=== PATIENT | female | born 2005 | race Two or more races ===

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

== ENCOUNTER 2024-10-27 20:29 | Emergency (ER) | payer OTHER, SELFPAY ==
--- NOTE | ~2024-10-27 | XR_ITS ---
CLINICAL HISTORY: chest congestion 1 view chest x-ray. Comparison: CR/SR - XR CHEST 2V - 05/10/23 17:51 EDT Findings: There is a somewhat rounded opacity at the right lung base measuring up to approximately 3.6 cm. Lungs appear otherwise clear. Cardiomediastinal silhouette is within normal limits. IMPRESSION: Somewhat rounded opacity at the right lung base probably rounded pneumonia as opposed to a mass given the patient's age. Follow-up to ensure resolution is recommended. This document has been electronically signed by: Sanjiv Kinsey MD on 10/27/2024 22:07:02
[2024-10-27 20:47] VITALS: BP 100/59; PULSE 110; RESP 18; TEMP 37.4; O2SAT 98; BMI 26.4
--- NOTE | 2024-10-27 21:14 | MHC.EDTECH ---
Patient brought into triage area,labs,sars/flu/rsv obtained and sent to lab
[2024-10-27 21:21] LABS: Basophils Absolute Auto 0.1 X10*3/uL (0.0-0.2); Basophils Percent Auto 0.3 % (0-2); Hematocrit 34.4 % (37.0-47.0); Hemoglobin 11.8 g/dl (12.0-16.0); Imm Gran Abs Auto 0.32 X10*3/uL (0.00-0.03); Imm Gran Pct Auto 1.3 % (0.0-0.4); Lymphocytes Absolute Auto 1.5 X10*3/uL (1.2-4.9); Lymphocytes Percent Auto 5.9 % (20-40); MANUAL DIFF FLAG SCAN; Mean Corpuscular HGB Conc 34.3 g/dl (31.0-35.0); Mean Corpuscular Hemoglobin 29.4 pg (27.0-33.0); Mean Corpuscular Volume 85.8 fL (80.0-98.0); Mean Platelet Volume 9.5 fL (9.4-12.3); Monocytes Absolute Auto 1.9 X10*3/uL (0.1-1.2); Monocytes Percent Auto 7.7 % (2-11); Neutrophils Absolute Auto 21.4 x10*3/uL (2.0-8.3); Neutrophils Percent Auto 84.8 % (45-73); Platelet Count 265 X10*3/uL (160-400); Red Blood Count 4.01 X10*6/uL (4.20-5.50); Red Cell Distribution Width 11.7 % (11.0-16.0); SCAN SMEAR FLAG 1; White Blood Count 25.3 X10*3/uL (4.8-10.8)
[2024-10-27 21:34] LABS: Alanine Aminotransferase 18 U/L (0-31); Albumin Level 3.8 g/dL (3.5-5.0); Alkaline Phosphatase 55 U/L (39-117); Anion Gap 8 (12-20); Aspartate Amino Transferase 28 U/L (5-31); Bilirubin Total 0.9 mg/dL (0.0-1.0); Blood Urea Nitrogen 6 mg/dL (9-16); Calcium 8.6 mg/dL (8.4-10.2); Carbon Dioxide 24 mmol/L (22-29); Chloride 108 mmol/L (96-108); Creatinine Clr Calc Pharmacy 106.2; Estimated Glomerular Filt Rate > 60; Glucose Random 157 mg/dL (60-115); Potassium 3.4 mmol/L (3.3-5.1); Sodium 137 mmol/L (135-145); Total Protein 6.9 g/dL (6.5-8.0)
[2024-10-27 21:58] LABS: Influenza A PCR NEGATIVE (Negative); Influenza B PCR NEGATIVE (Negative); Resp Syncy Virus RNA Qual PCR NEGATIVE (Negative); SARS COV2 PCR INHOUSE NEGATIVE (Negative)
[2024-10-27 22:02] LABS: SLIDE REVIEW VERIFIED
[2024-10-27 23:26] VITALS: BP 106/55; PULSE 98; RESP 17; TEMP 37.2; O2SAT 99
[2024-10-28] MEDS: cefTRIAXone sodium 2 GM VIAL IVPUSH (00:01)
[2024-10-28] MEDS: 0.9 % Sodium Chloride 1,000 ML 999 ML IV ×2 (00:02→01:26)
[2024-10-28 00:28] LABS: Lactic Acid 1.3 mmol/L (0.5-2.0)
[2024-10-28 01:11] VITALS: BP 98/45; PULSE 100; RESP 17; TEMP 37.9; O2SAT 100
[2024-10-28] MEDS: Doxycycline Monohydrate 100 MG CAPSULE PO (01:30)
[2024-10-28] MEDS: Ketorolac Tromethamine 15 MG/ML VIAL IVPUSH (01:30)
[2024-10-28 02:00] VITALS: BP 96/55; PULSE 96; RESP 17; TEMP 36.9; O2SAT 96
[2024-10-28 03:04] VITALS: BP 97/43; PULSE 99; RESP 16; TEMP 36.8; O2SAT 97
--- NOTE | 2024-10-28 03:47 | ED_ITS ---
HPI - General Adult General Chief complaint: Upper Respiratory Symptoms Stated complaint: Asthma/fever today Time Seen by Provider: 10/27/24 23:27 Source: patient Limitations: no limitations History of Present Illness ED Provider: Marybel Balderas PA-C HPI narrative: 19-year-old female presents with cough and cold symptoms x2 days. Associated generalized myalgia, weakness headache, sore throat with cough. The cough is not productive. Patient had a fever 100.3 at home. Her child has been sick with RSV. Denies history of asthma or tobacco abuse. Related Data Previous Rx's ?Medication ?Instructions ?Recorded epinephrine 0.3 mg/0.3 mL 0.3 mg (0.3 mL) IM Q10M PRN 06/19/22 injection, auto-injector anaphylaxis #2 ea nitrofurantoin 100 mg PO Q12H 7 days #14 caps 08/27/23 monohydrate/macrocrystals 100 mg capsule (Macrobid) doxycycline hyclate 100 mg capsule 100 mg PO BID #14 caps 10/28/24 Allergies Allergy/AdvReac Type Severity Reaction Status Date / Time peanut Allergy Severe Anaphylaxis Verified 10/27/24 20:47 albuterol Allergy Unknown Verified 10/27/24 20:47 amoxicillin Allergy Hives Verified 10/27/24 20:47 oseltamivir [From Tamiflu] Allergy Hives Verified 10/27/24 20:47 Seasonal Allergies AdvReac Hives Verified 10/27/24 20:47 Review of Systems 2 Review of Systems: Yes all other systems are reviewed and are negative Constitutional: Constitutional: Reports fatigue, Reports fever(s) and Reports malaise Cardiovascular: Cardiovascular: Denies chest pain and Denies dyspnea Respiratory: Respiratory: Reports cough, Denies dyspnea and Denies wheezing Gastrointestinal: Gastrointestinal: Denies abdominal pain, Denies diarrhea, Denies nausea and Denies vomiting Endocrine: Endocrine: Reports fatigue Allergic/Immunologic: Allergic/Immunologic: Denies wheezing PMFSH Past Medical History Attestation statement: The following information was validated with the patient. Medical History Asthma Social History Social History Smoked in Last 30 Days: No Use of substances other than those prescribed or required for medical reasons: No Advance Directives: No Advance Directives Information Provided: No Do you have a plan to hurt others: No Plan Patient : No Physical Exam ED Vital Signs: Vital Signs - 24 hr 10/27/24 20:47 10/27/24 23:26 10/27/24 23:26 Temperature 99.3 F 98.9 F Pulse Rate 110 H 98 Respiratory Rate 18 17 Blood Pressure 100/59 L 106/55 L Pulse Oximetry 98 99 99 Oxygen Delivery Method Room Air Room Air Room Air 10/28/24 01:11 10/28/24 02:00 10/28/24 03:04 Temperature 100.3 F 98.5 F 98.3 F Pulse Rate 100 96 99 Respiratory Rate 17 17 16 Blood Pressure 98/45 L 96/55 L 97/43 L Pulse Oximetry 100 96 97 Oxygen Delivery Method Room Air Room Air Room Air 10/28/24 04:00 10/28/24 04:22 Temperature 98.3 F 98.3 F Pulse Rate 90 90 Respiratory Rate 17 17 Blood Pressure 105/64 105/64 Pulse Oximetry 97 97 Oxygen Delivery Method Room Air Room Air BMI result Body Mass Index 26.4 Const Other: Alert Orientation/consciousness: patient oriented x3 Resp Other: Nonlabored respirations lungs clear to auscultation Cardio Other: Normal peripheral perfusion Skin Other: Warm dry no rash Neuro General: patient oriented x3, no focal motor deficits and CN's II-XI intact bilaterally Psych Other: Cooperative Course Reevaluation(s) Reevaluation #1: Sepsis considered prior to me assessing the patient, with the screening labs, blood cultures and lactic acid were obtained. She was given a L of IV fluid, Toradol and ceftriaxone. To note, she does not require the weight based IV fluid therapy given she is hemodynamically stable/normotensive. Time: 23:31 Medications Administered Discontinued Medications Generic Name Dose Route Start Last Admin Trade Name Freq PRN Reason Stop Dose Admin Ceftriaxone Sodium 2 gm 10/27/24 23:31 10/28/24 00:01 Ceftriaxone Sodium 2 Gm Vial IVPUSH 10/27/24 23:32 2 gm ONCE ONE Administration Doxycycline Monohydrate 100 mg 10/28/24 01:22 10/28/24 01:30 Doxycycline Monohydrate 100 Mg Capsule PO 10/28/24 01:23 100 mg ONCE ONE Administration Sodium Chloride 1,000 mls @ 999 mls/hr 10/27/24 23:45 10/28/24 01:25 Ns IV 10/28/24 00:45 Infused .Q1H1M LUIS ARMANDO Infusion Sodium Chloride 1,000 mls @ 999 mls/hr 10/28/24 01:30 10/28/24 03:04 Ns IV 10/28/24 02:30 Infused .Q1H1M LUIS ARMANDO Infusion Ketorolac Tromethamine 15 mg 10/28/24 01:22 10/28/24 01:30 Ketorolac Tromethamine 15 Mg/Ml Vial IVPUSH 10/28/24 01:23 15 mg ONCE ONE Administration Medical Decision Making Medical Decision Making MDM Narrative: 19-year-old female presents with cough and cold symptoms x2 days. Associated generalized myalgia, weakness headache, sore throat with cough. The cough is not productive. Patient had a fever 100.3 at home. Her child has been sick with RSV. Denies history of asthma or tobacco abuse. No chronic problems History: Per patient I have considered the following differential diagnoses: Viral syndrome, pneumonia, asthma exacerbation, sepsis Plan: Screening labs including viral panel blood cultures and lactic were obtained from triage and a chest x-ray. It appears the patient has pneumonia, we will cover for community-acquired, she is getting fluids ceftriaxone and Toradol. She does not require the weight based IV fluid resuscitation given she is normotensive. I have independently reviewed the following tests: Labs: Leukocytosis with left shift, not anemic, no electrolyte abnormality, lactic acid 1.3, viral panel neg Chest x-ray:IMPRESSION: Somewhat rounded opacity at the right lung base probably rounded pneumonia as opposed to a mass given the patient's age. Follow-up to ensure resolution is recommended. This document has been electronically signed by: Sanjiv Kinsey MD on 10/27/2024 22:07:02 Lab Data 10/27/24 21:13 10/27/24 21:13 Labs: Lab Results 10/27/24 10/27/24 Range/Units 21:13 23:53 WBC 25.3 H (4.8-10.8) X10*3/uL RBC 4.01 L (4.20-5.50) X10*6/uL Hgb 11.8 L (12.0-16.0) g/dl Hct 34.4 L (37.0-47.0) % MCV 85.8 (80.0-98.0) fL MCH 29.4 (27.0-33.0) pg MCHC 34.3 (31.0-35.0) g/dl RDW 11.7 (11.0-16.0) % Plt Count 265 D (160-400) X10*3/uL MPV 9.5 (9.4-12.3) fL Immature Gran % (Auto) 1.3 H (0.0-0.4) % Neut % (Auto) 84.8 H (45-73) % Lymph % (Auto) 5.9 L (20-40) % [place] % (Auto) 7.7 (2-11) % Eos % (Auto) 0.0 (0-4) % Baso % (Auto) 0.3 (0-2) % Lymph # (Auto) 1.5 (1.2-4.9) X10*3/uL [place] # (Auto) 1.9 H (0.1-1.2) X10*3/uL Eos # (Auto) 0.0 (0.0-0.4) X10*3/uL Baso # (Auto) 0.1 (0.0-0.2) X10*3/uL Abs Immat Gran (auto) 0.32 H (0.00-0.03) X10*3/uL Absolute Neuts (auto) 21.4 H (2.0-8.3) x10*3/uL Absolute Nucleated RBC 0.000 (0.0-0.012) X10*3/uL Nucleated RBC % (auto) 0.0 (0.0-0.2) /100WBC Smear Tech's Comments VERIFIED Sodium 137 (135-145) mmol/L Potassium 3.4 (3.3-5.1) mmol/L Chloride 108 (96-108) mmol/L Carbon Dioxide 24 (22-29) mmol/L Anion Gap 8 L (12-20) BUN 6 L (9-16) mg/dL Creatinine 0.75 (0.5-1.4) mg/dL Estim Creat Clear Calc 106.2 Estimated GFR > 60 Random Glucose 157 H (60-115) mg/dL Lactic Acid 1.3 (0.5-2.0) mmol/L Calcium 8.6 D (8.4-10.2) mg/dL Total Bilirubin 0.9 (0.0-1.0) mg/dL AST 28 (5-31) U/L ALT 18 (0-31) U/L Alkaline Phosphatase 55 (39-117) U/L Total Protein 6.9 (6.5-8.0) g/dL Albumin 3.8 (3.5-5.0) g/dL Influenza Type A (PCR) NEGATIVE (Negative) Influenza Type B (PCR) NEGATIVE (Negative) RSV RNA Qual (PCR) NEGATIVE (Negative) SARS-CoV-2 RNA (RT-PCR) NEGATIVE (Negative) Discharge Plan Discharge Clinical Impression: Pneumonia Patient Disposition: Home, Self-Care Instructions: Community Acquired Pneumonia (ED) Additional Instructions: You were found to have pneumonia. See home care instructions. Take the doxycycline as directed. If you develop fevers you can alternate between the use of Tylenol 1000 mg taken every 8 hours, with ibuprofen 600 mg taken every 6 hours with food. Follow up with your primary care provider as needed. Prescriptions: New doxycycline hyclate 100 mg capsule 100 mg PO BID Qty: 14 0RF No Action epinephrine 0.3 mg/0.3 mL auto-injector 0.3 mg IM Q10M PRN (Reason: anaphylaxis) Qty: 2 0RF Rx Instructions: for 2 doses nitrofurantoin monohyd/m-cryst [Macrobid] 100 mg capsule 100 mg PO Q12H 7 Days Qty: 14 0RF Rx Instructions: must administer with a meal/food Stand Alone Forms: Work/School Release Interventions: ED Discharge Assessment Last Done: 10/28/24 04:22 Discharge Date/Time: 10/28/24 04:23 Print Language: Kiswahili
[2024-10-28 04:00] VITALS: BP 105/64; PULSE 90; RESP 17; TEMP 36.8; O2SAT 97
[2024-10-28 04:22] VITALS: BP 105/64; PULSE 90; RESP 17; TEMP 36.8; O2SAT 97
== END 2024-10-28 04:23 | disposition home or self-care (01) ==
PROVIDERS: Physician Assistant Medical; Emergency Provider Emergency Medicine; PCP Internal Medicine
DX: J18.9 Pneumonia, unspecified organism (principal); R50.9 Fever, unspecified; R05.9 Cough, unspecified; Z03.818 Encounter for observation for suspected exposure to other biological agents ruled out
CPT/HCPCS: 0241U; 36415; 71045; 80053; 83605; 85025; 87040; 96361; 96374; 96375; 99284; J0696; J1885

== ENCOUNTER → 2024-10-27 21:00 | Outpatient (BNV) | payer SELFPAY | PROVIDERS: PCP Internal Medicine; Visit Provider Radiology Diagnostic Radiology | DX: R91.8 Other nonspecific abnormal finding of lung field (principal) | CPT/HCPCS: 71045 ==

== ENCOUNTER 2025-09-24 00:37 | Emergency (ER) | payer OTHER, SELFPAY ==
--- NOTE | 2025-09-24 00:38 | ECG_ITS ---
Test Reason : CP Blood Pressure : */* mmHG Vent. Rate : 118 BPM Atrial Rate : 118 BPM P-R Int : 114 ms QRS Dur : 84 ms QT Int : 316 ms P-R-T Axes : 10 59 -7 degrees QTcB Int : 442 ms Sinus tachycardia Nonspecific T wave abnormality Abnormal ECG When compared with ECG of 10-May-2023 18:17, Inverted T waves have replaced nonspecific T wave abnormality in Inferior leads Nonspecific T wave abnormality now evident in Anterolateral leads Referred By: Generic ED Physician Electronically Signed By: FELIPE PUCKETT MD
[2025-09-24 00:48] VITALS: BP 117/73; PULSE 116; RESP 20; TEMP 36.8; O2SAT 98; BMI 32.7
[2025-09-24 01:08] LABS: MANUAL DIFF FLAG NO
[2025-09-24 01:09] LABS: Delay - Chemistry DELAY
[2025-09-24 01:20] LABS: Hematocrit 35.4 % (37.0-47.0); Hemoglobin 11.8 g/dl (12.0-16.0); Imm Gran Abs Auto 0.07 X10*3/uL (0.00-0.03); Imm Gran Pct Auto 0.6 % (0.0-0.4); Lymphocytes Absolute Auto 0.8 X10*3/uL (1.2-4.9); Mean Corpuscular HGB Conc 33.3 g/dl (31.0-35.0); Mean Corpuscular Hemoglobin 30.1 pg (27.0-33.0); Mean Corpuscular Volume 90.3 fL (80.0-98.0); NRBC Abs Auto 0.000 X10*3/uL (0.0-0.012); NRBC Pct Auto 0.0 /100WBC (0.0-0.2); Platelet Count 293 X10*3/uL (160-400); Red Blood Count 3.92 X10*6/uL (4.20-5.50); White Blood Count 11.0 X10*3/uL (4.8-10.8)
[2025-09-24 01:27] LABS: Alanine Aminotransferase 9 U/L (0-31); Albumin Level 3.8 g/dL (3.5-5.0); Alkaline Phosphatase 75 U/L (39-117); Anion Gap 12 (12-20); Aspartate Amino Transferase 21 U/L (5-31); Blood Urea Nitrogen 5 mg/dL (9-16); Calcium 9.0 mg/dL (8.4-10.2); Carbon Dioxide 22 mmol/L (22-29); Chloride 108 mmol/L (96-108); Creatinine Clr Calc Pharmacy 162.4; Estimated Glomerular Filt Rate > 60; Potassium 3.7 mmol/L (3.3-5.1); Sodium 138 mmol/L (135-145); Total Protein 7.1 g/dL (6.5-8.0)
--- NOTE | 2025-09-24 01:48 | ED.URI ---
HPI - URI/Sore Throat General Chief Complaint: Upper Respiratory Symptoms Stated Complaint: CP Time Seen by Provider: 09/24/25 01:45 Source: patient Mode of arrival: ambulatory Limitations: no limitations History of Present Illness ED Provider: Byron JIM HPI Narrative: Patient is a 20 year old female, currently 30 weeks presenting today with a 1 day history of dry cough and palpitations. Pt states her symptoms started around 5pm yesterday. Was seen by her OBGYN today because she was experiencing intermittent contraction like pain, patient's OBGYN told her that she was not having contractions, has no UTI, and should stay hydrated. After her appointment, she began experiencing palpations and reports her cough became more congested and uncomfortable. Patient reports she also developed mild nausea and sore throat when she swallows. Patient reports temperature earlier today was 100.2 but improved without any antipyretics. The patient reports she has been experiencing recurrent palpitations for the past year since the of her other child, and has an upcoming appointment with cardiology. Denies associated vaginal bleeding, passage of fluid, vomiting, or abd pain. Related Data Previous Rx's ?Medication ?Instructions ?Recorded epinephrine 0.3 mg/0.3 mL 0.3 mg (0.3 mL) IM Q10M PRN 06/19/22 injection, auto-injector anaphylaxis #2 ea nitrofurantoin 100 mg PO Q12H 7 days #14 caps 08/27/23 monohydrate/macrocrystals 100 mg capsule (Macrobid) doxycycline hyclate 100 mg capsule 100 mg PO BID #14 caps 10/28/24 Allergies Allergy/AdvReac Type Severity Reaction Status Date / Time peanut Allergy Severe Anaphylaxis Verified 09/24/25 00:50 albuterol Allergy Unknown Verified 09/24/25 00:50 amoxicillin Allergy Hives Verified 09/24/25 00:50 oseltamivir (From Tamiflu) Allergy Hives Verified 09/24/25 00:50 shellfish derived (shellfish) Allergy Anaphylaxis Verified 09/24/25 01:10 Seasonal Allergies AdvReac Hives Verified 09/24/25 00:50 Review of Systems Review of Systems: Yes all other systems are reviewed and are negative PMFSH Past Medical History Medical History Asthma Social History Social History Advance Directives: No Advance Directives Information Provided: Yes Physical Exam Vital Signs: Vital Signs: Last Vital Signs Temp 97.7 F 09/24/25 03:57 Pulse 90 09/24/25 03:57 Resp 18 09/24/25 03:57 BP 105/65 09/24/25 03:57 Pulse Ox 100 09/24/25 03:57 O2 Del Method Room Air 09/24/25 03:57 BMI result Body Mass Index 32.7 CONSTITUTIONAL: The patient appears non-toxic, well nourished and in no acute distress. Vital signs as documented. HEAD: Atraumatic, normocephalic. EYES: EOMs grossly intact, pupils equal, conjunctiva clear, no exudate. ENT: Nares patent, no discharge. Airway patent, no audible stridor, visible mucosa is pink and moist without noted lesions. NECK: Trachea is midline, no obvious masses or gross abnormalities. CHEST: Symmetric movement, normal appearance. LUNGS: LS present and CTAB, no w/r/r. Non-labored work of breathing. CARDIAC: Rapid but otherwise Regular Rhythm, S1/S2 appreciated, no murmurs, rubs or gallops. ABDOMEN: Gravid abdomen, appears consistent with gestational age, otherwise soft and non-tender x4 quadrants, no other palpable masses or organomegaly. : Deferred. EXTREMITIES: Normal tone, moves all extremities spontaneously without reported pain. No obvious acute injury or deformity noted. NEURO: Alert and oriented x3, CN II-XII appear grossly intact. Cerebellar Functioning grossly intact. No obvious sensory or motor deficits. Speech clear and appropriate. PSYCH: normal affect, appropriate eye contact, fluid speech, with appropriate response to questioning. No reported suicidality or homicidality. SKIN: Warm, dry, color appropriate, normal turgor. No rashes noted. Medications Administered Discontinued Medications Generic Name Dose Route Start Last Admin Trade Name Freq PRN Reason Stop Dose Admin Sodium Chloride 1,000 mls @ 999 mls/hr 09/24/25 02:45 09/24/25 02:51 Ns IV 09/24/25 03:45 999 mls/hr .Q1H1M LUIS ARMANDO Administration Medical Decision Making Medical Decision Making MDM Narrative: Patient is a 20 year old female, currently 30 weeks presenting today with a 1 day history of dry cough and palpitations. Pt states her symptoms started around 5pm yesterday. Was seen by her OBGYN today because she was experiencing intermittent contraction like pain, patient's OBGYN told her that she was not having contractions, has no UTI, and should stay hydrated. After her appointment, she began experiencing palpations and reports her cough became more congested and uncomfortable. Patient reports she also developed mild nausea and sore throat when she swallows. Patient reports temperature earlier today was 100.2 but improved without any antipyretics. The patient reports she has been experiencing recurrent palpitations for the past year since the of her other child, and has an upcoming appointment with cardiology. Denies associated vaginal bleeding, passage of fluid, vomiting, or abd pain. On exam, the patient is well appearing, in NAD. Lung sounds are clear to ausculatation. Posterior pharynx demonstrates mild erythema without associated peritonsillar swelling, tonsillar swelling, or tonsillar exudate. There is no cervical lymphadenopathy appreciated. Patient's laboratory evalutation reveals mild leukocytosis, no electrolyte abnormalities. Patient tested negative for influenza, RSV, and covid. EKG revealed sinus tachycardia at 118bpm with nonspecific T wave abnormalities. At her OBGYN appointment, pt states she had a UA done that revealed no UTI. Differential at this time is strep pharyngitis, versus viral URI versus less likely PE. Strep is less likely due to no cervical lymph node tenderness and the presence of a cough. PE is considered due to the tachycardia, however, less likely because no tachypnea, hemoptysis, pleurisy, or hypoxia. We will treat with Zofran, IV fluid hydration, and obtain a strep swab. If patient's heart rate improves with IV fluid hydration we will forego additional workup for PE as patient's palpitations have been ongoing for 1 year and today's symptoms are more consistent with a viral URI. 4:11 AM 09/24/2025 (Bucky JIM): The patient's strep swab is negative, heart rate has improved following IV fluid hydration. The patient is reporting feeling markedly improved and requesting discharge, is also requesting a work note. We will provide work note and discharged with supportive care. Admission/Observation Consideration of admission/observation: Escalation of care including admission/observation considered Lab Data MDM Lab Attestation statement: I reviewed the patient's lab results. 09/24/25 01:00 09/24/25 01:00 Labs: Lab Results 09/24/25 09/24/25 09/24/25 Range/Units 01:00 01:09 02:42 WBC 11.0 H (4.8-10.8) X10*3/uL RBC 3.92 L (4.20-5.50) X10*6/uL Hgb 11.8 L (12.0-16.0) g/dl Hct 35.4 L (37.0-47.0) % MCV 90.3 (80.0-98.0) fL MCH 30.1 (27.0-33.0) pg MCHC 33.3 (31.0-35.0) g/dl RDW 12.5 (11.0-16.0) % Plt Count 293 (160-400) X10*3/uL MPV 8.9 L (9.4-12.3) fL Immature Gran % (Auto) 0.6 H (0.0-0.4) % Neut % (Auto) 81.3 H (45-73) % Lymph % (Auto) 7.0 L (20-40) % Preble % (Auto) 9.1 (2-11) % Eos % (Auto) 1.5 (0-4) % Baso % (Auto) 0.5 (0-2) % Lymph # (Auto) 0.8 L (1.2-4.9) X10*3/uL Preble # (Auto) 1.0 (0.1-1.2) X10*3/uL Eos # (Auto) 0.2 (0.0-0.4) X10*3/uL Baso # (Auto) 0.1 (0.0-0.2) X10*3/uL Abs Immat Gran (auto) 0.07 H (0.00-0.03) X10*3/uL Absolute Neuts (auto) 9.0 H (2.0-8.3) x10*3/uL Absolute Nucleated RBC 0.000 (0.0-0.012) X10*3/uL Nucleated RBC % (auto) 0.0 (0.0-0.2) /100WBC Sodium 138 (135-145) mmol/L Potassium 3.7 (3.3-5.1) mmol/L Chloride 108 (96-108) mmol/L Carbon Dioxide 22 (22-29) mmol/L Anion Gap 12 (12-20) BUN 5 L (9-16) mg/dL Creatinine 0.54 (0.5-1.4) mg/dL Estim Creat Clear Calc 162.4 Estimated GFR > 60 Random Glucose 86 (60-115) mg/dL Calcium 9.0 (8.4-10.2) mg/dL Total Bilirubin 0.4 (0.0-1.0) mg/dL AST 21 (5-31) U/L ALT 9 (0-31) U/L Alkaline Phosphatase 75 (39-117) U/L Troponin I High Sens < 2.7 (<3.5-17.0) ng/L Total Protein 7.1 (6.5-8.0) g/dL Albumin 3.8 (3.5-5.0) g/dL Specimen Comment DELAY Influenza Type A (PCR) NEGATIVE (Negative) Influenza Type B (PCR) NEGATIVE (Negative) RSV RNA Qual (PCR) NEGATIVE (Negative) SARS-CoV-2 RNA (RT-PCR) NEGATIVE (Negative) S. pyogenes GrpA ANTIONETTE Negative (Negative) Independent Interpretation I performed an independent interpretation of an: EKG (EKG shows sinus tachycardia with a rate of 118, no evidence of acute ischemia, no ST elevation, no ectopy. QTC 442. No old for comparison.) External Record Review External record reviewed: Outpatient record and Prior outpatient labs Prescription Management I considered prescription management with: Pain Medication and Antibiotic Discharge Plan Discharge Clinical Impression: Upper respiratory infection Patient Disposition: Home, Self-Care Instructions: Viral Syndrome (ED), Upper Respiratory Infection (ED) Additional Instructions: Thank you for choosing [facility]'s Emergency Department for your care today. Thankfully your laboratory evaluation, EKG, viral swabs, and strep swab today are all reassuring. At this time there is no indication for admission to the hospital or continued ED observation, and it is safe to discharge you home. Your symptoms appear related to a viral upper respiratory infection. Based on your laboratory evaluation and exam there is no concern for pneumonia at this time. You should take Tylenol 1000mg every 6 hours as needed for any additional fever, congestion, or pain. Please stay well hydrated and get plenty of rest. Please follow up with your OBGYN for continued care, and your primary care physician for re-evaluation, additional management of your symptoms, and continued preventative care. If you do not have a primary care physician, please call the [facility] at [phone] to establish a new primary care physician. While waiting to establish your new primary care physician, you can call our Walk[facility]in [facility] at [phone] for non-emergency needs. Please return to the emergency department if you develop a severe or sudden change in your symptoms, a fever over 100.4 that does not improve with Tylenol or Ibuprofen, recurrent vomiting, or any other new or worsening symptoms or concerns. Prescriptions: No Action epinephrine 0.3 mg/0.3 mL auto-injector 0.3 mg IM Q10M PRN (Reason: anaphylaxis) Qty: 2 0RF Rx Instructions: for 2 doses nitrofurantoin monohyd/m-cryst [Macrobid] 100 mg capsule 100 mg PO Q12H 7 Days Qty: 14 0RF Rx Instructions: must administer with a meal/food doxycycline hyclate 100 mg capsule 100 mg PO BID Qty: 14 0RF Referrals: Domenica Barrett MD [Primary Care Provider, Internal Medicine] Clinical Impression: Upper respiratory infection Stand Alone Forms: Work/School Release Print Language: Monegasque
[2025-09-24 01:49] LABS: Resp Syncy Virus RNA Qual PCR NEGATIVE (Negative); SARS COV2 PCR INHOUSE NEGATIVE (Negative)
[2025-09-24 02:38] LABS: Troponin-I High Sensitivity < 2.7 ng/L (<3.5-17.0)
--- OUTSIDE RECORDS SUMMARY | 2025-09-24 02:40 | XMS_ITS | Clinical Summary ---
Author Organization [address] Building Address [address] [place] [id number] Phone Care Team Providers Care Artificial Candy Maker Name Role Phone Domenica Barrett MD Primary Care Provider [phone] Allergies Active Allergy Reactions Criticality Noted Date Comments Albuterol Hives High 08/02/2023 Gets hives around/behind ears (uses symbicort and solair instead) Amoxicillin Hives High 07/05/2023 Hands, face, and belly covered in hives Fd And C Blue No 2 Hives High 07/05/2023 Ears and face, lips swelled up/hives Levonorgestrel-Ethinyl Estrad 07/05/2023 Nut - Unspecified Hives 02/20/2024 Peanut Hives High 07/05/2023 Hives face/hands Medications budesonide/formot royce fumarate (BUDESONIDE-FORMO TEROL INHL) Inhale into the lungs. Active omalizumab (Xolair) 150 mg/mL syringe subcutaneous syringe Inject into the skin. Active PNV no.95/ferrous fum/folic ac ( ORAL) Take 1 Tablet by mouth daily. 3 Active albuterol 2.5 mg /3 mL (0.083 %) nebulizer solution INHALE 1 VIAL VIA NEBULIZER EVERY 4 HOURS NEEDED 4 Active Active Problems Problem Noted Date Diagnosed Date Mild preeclampsia 02/23/2024 Palpitations 11/25/2023 Overview (08/13/2024): Triage visit on 11/25: precautions given to pt, pending appt with pcp for cardiac w/u, chart sent to nursing triage to forward to internal med triage to schedule appt emily. Anemia of 11/24/2023 Overview (08/13/2024): Cutoff hemoglobin levels: First trimester <11.0 Second trimester <10.5 Third trimester <11.0 <10.0 -If micro or normocytic anemia - tx with oral Fe (sulfate or gluconate) every other day, repeat CBC 2-3 weeks -If normalized, continue until 6 weeks -If not normalized, make sure compliant and if so, refer to Heme for iron infusion -If macrocytic anemia with MCV>100, then order B12 and folate levels and treat prn, recheck in 2-3 weeks -If normalized, continue until 6 weeks -If not, make sure compliant and if so, refer to Heme Maternal varicella, non-immune 08/03/2023 Overview (04/18/2025): Given PP 02/25/24 Asthma 08/02/2023 Overview (08/13/2024): 08/02/23 Uses Xolair and Symbicort (has allergy to albuterol). 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 Obesity affecting in first trimester 1 Overview (08/13/2024): Pre-Preg BMI 37.12 HgbA1C and 1 hour GTT at initial labs - ordered ASA 162mg at 12 weeks until delivery - ordered Detailed anatomy ultrasound Repeat GTT 24-28 weeks if early is normal Pre-preg BMI 35-39.9: NST weekly at 37 weeks Pre-preg BMI >40: NST weekly at 34 weeks Pre-preg BMI >45: NST weekly at 32 weeks Growth US at 32 and 36 weeks for BMI >40 BMI of 50 by 28wks transfer to [facility] DVT prophylaxis- Lovenox if CS and BMI >35 Estimated Date of Delivery Comme nts Yes 12/02/2025 Encounters Date Type Department Care Team Description 09/06/2025 Telephone Internal [facility] [address] [place] [id number] Domenica Barrett MD from Last 3 Months Immunizations Immunization Administration Dates Next Due Tdap Tetanus diptheria acell ular pertussis (Boostrix; Adacel) 7yo and older 11/24/2023 Surgical History Surgery Date Site/Laterality Comments OTHER SURGICAL HISTORY PROCEDURE: DENIES PREVIOUS SURGERY Medical History Medical History Date Comments Mild intermittent asthma, uncomplicated DX:Mild intermittent asthma, uncomplicated Family History Medical History Relation Name Comments Hypertension Aunt maternal aunt Other: autism Brother 1 No Known Problems Brother 2 No Known Problems Father No Known Problems Maternal Grandfather Hypertension Maternal Grandmother ?heart issues Asthma Mother Other: low blood pressure Mother Asthma Mother's side Diabetes Mother's side No Known Problems Paternal Grandfather Breast cancer Paternal Grandmother unilat eral No Known Problems Sister Cervical cancer Neg Hx Colon cancer Neg Hx Ovarian cancer Neg Hx Pancreatic cancer Neg Hx Prostate cancer Neg Hx Uterine cancer Neg Hx Relation Name Status Comments Aunt Alive Brother 1 Alive Brother 2 Alive Father Alive Maternal Grandfather Alive Maternal Grandmother Alive Mother Alive Mother's side Alive maternal great grandmother Paternal Grandfather Alive Paternal Grandmother Sister Alive Social History Tobacco Use Types Packs/Day Years Used Date Smoking Tobacco: Never Smokeless Tobacco: Never Tobacco Cessation:Counseling Given: No Alcohol Use Standard Drinks/Week Comments Not Currently 0 (1 standard drink = 0.6 oz pur e alcohol) Estimated Date of Delivery Comme nts Yes 12/02/2025 Sex and Gender Information Value Date Recorded Sex Assigned at Not on file Legal Sex Female 8:49 PM EST Gender Identity Not on file Sexual Orientation Not on file Obstetrics History * This document contains information received from the source organization and may not represent a complete record from that organization. Para Term AB IAB SAB Ectopic Multiple Livin g Live Births 3 1 1 0 0 0 1 1 Date Outcome GA Total Labor Labor/2nd/3rd Weight Sex Type Anes PTL Floridalma A1 A5 Name Clin 2022 2023 Term 40w 5d 3033 g (107 oz) F Vag-S pont Epidur al Livin g Dr. Rosaura paz Complications:Pre-eclampsia Delivery Location:[facility] Comments:Apg 8-9-9 Current Last Filed Vital Signs Vital Sign Reading Time Taken Comments Blood Pressure 98/68 06/11/2025 10:09 AM EDT auto Pulse 99 06/11/2025 10:09 AM EDT Temperature - - Respiratory Rate - - Oxygen Saturation - - Inhaled Oxygen Concentration - - Weight 70.3 kg (154 lb 14.4 oz) 025 10:09 AM EDT Height 157.5 cm (5' 2 ) 06/11/2025 10:0 9 AM EDT Body Mass Index 28.33 06/11/2025 10:09 AM EDT Plan of Treatment Health Maintenance Due Date Last Done Comments Pneumococcal Vaccine: Pediatrics (0 to 5 Years) and At-Risk Patients (6 to 49 Years) (1 of 1 - PPSV23, PCV20, or PCV21) 2010 10/28/2005, 04/01/2005, 02/24/2005, Additional history exists Meningococcal B Vaccine (1 of 2 - Standard) 2020 Annual Well Child Visit (3-21 years old) 11/11/2023 Cholesterol Screening (Lipid Panel) 11/11/2023 Social Influencers of Health Screening 11/11/2023 Hypertension/CHF/CAD Annual BMP Blood Test 05/10/2024 Gonorrhea/Chlamydia Screening 08/09/2024 08/09/2023 Depression Screening 10/17/2024 COVID-19 Vaccine ( - season) 2025 10/14/2021, 09/16/2021 Influenza Vaccine (#1) 2025 Cervical Cancer Screening: Pap Smear 2025 RSV Immunization Adult Patients (1 - Risk 1-dose series) 10/07/2025 DTaP,Tdap,and Td Vaccines (9 - Td or Tdap) 11/24/2033 11/24/2023, 05/05/2021, 09/08/2015, Additional history exists Hepatitis B Vaccines Completed 02/24/2005, 2004, 2004 HIB Vaccines Completed 10/28/2005, 06/2005, 2004 IPV Vaccines Completed 08/09/2008, 02/14, 2004, Additional history exists HPV Vaccines Completed 12/25/2018, 02/12/2017 Hepatitis A Vaccines Completed 12/25/2018, 02/13/20 17 Meningococcal ACWY Vaccine Completed 05/05/2021, HIV Screening Completed 08/02/2023 Hepatitis C Screening Completed 08/02/2023 RSV Immunization Patients Under 20 months Aged Out No longer eligible based on patient's age to complete this topic Procedures Procedure Name Priority Date/Time Associated Diagnosis Comments GONORRHEA/CHLAMYDIA SCRREENING Routine 08/09/2023 HEPATITIS C SCREENING Routine 08/02/2023 HIV SCREENING Routine 08/02/2023 from Last 3 Months or Most Recently Relevant to Health Maintenance Results * Gonorrhea/Chlamydia Screening (08/09/2023) Gonorrhea/Chla mydia Screening abstracted [facility] Provider MD HEALTH MAINTENANCE Final Result * HIV Screening (08/02/2023) HIV Screening abstracted [facility] Provider MD HEALTH MAINTENANCE Final Result * Hepatitis C Screening (08/02/2023) Hepatitis C Screening abstracted [facility] Provider HEALTH MAINTENANCE Final Result from Last 3 Months or Most Recently Relevant to Health Maintenance Insurance [facility] [employer] Care Teams Artificial Candy Maker Relationship Specialty Start Date End Date Domenica Barrett MD [address] [place], [place] PCP - General Internal Medicine 04/24/25
--- OUTSIDE RECORDS SUMMARY | 2025-09-24 02:40 | XMS_ITS | Encounter Summary ---
Author Organization [facility] Address [address] [place] [address] Care Team Providers Care Systems Software Developer Name Role Phone Domenica Barrett MD Primary Care Provider [phone] Encounter Details Date Type Department Care Team (Late st Contact Info) Description 09/06/2025 Telephone Internal Medicine - [facility] [address] [place], [place] [phone] Domenica Barrett MD [address] [place] [address] Social History Tobacco Use Types Packs/Day Years Used Date Smoking Tobacco: Never Smokeless Tobacco: Never Alcohol Use Standard Drinks/Week Comments Not Currently 0 (1 standard drink = 0.6 oz pur e alcohol) Estimated Date of Delivery Comme nts Yes 12/02/2025 Sex and Gender Information Value Date Recorded Sex Assigned at Not on file Legal Sex Female 8:49 PM EST Gender Identity Not on file Sexual Orientation Not on file documented as of this encounter Plan of Treatment Not on file documented as of this encounter Visit Diagnoses Not on filedocumented in this encounter Care Teams Systems Software Developer Relationship Specialty Start Date End Date Domenica Barrett MD [address] [place] [address] PCP - General Internal Medicine 04/24/25 documented as of this encounter
--- OUTSIDE RECORDS SUMMARY | 2025-09-24 02:40 | XMS_ITS | Clinical Summary ---
Author Organization [facility] Address [address] [place] [address] Phone Care Team Providers Care Global Compensation Manager Name Role Phone Vic Phillips DO Primary Care Provider [phone] Vic Phillips DO Unavailable [phone] Medications EPINEPHrine (EpiPen) 0.3 mg/0.3 mL injection Dose: 0.3 mg, IM, As Directed, PRN Anaphylaxis, Special Instructions: >25 kg, inject into thigh, Dispense Quantity: 1 EA, Entered: 07/08/21 21:55:00 EDT, [id number] 07/08/2021 Active Social History Tobacco Use Types Packs/Day Years Used Date Smoking Tobacco: Never Assessed Comments Unknown Sex and Gender Information Value Date Recorded Sex Assigned at Not on file Legal Sex Female 4:29 AM EDT Gender Identity Not on file Sexual Orientation Not on file Last Filed Vital Signs Vital Sign Reading Time Taken Comments Blood Pressure 126/65 07/08/2021 9:27 PM EDT Pulse 90 07/08/2021 9:27 PM EDT Temperature 36.8 C (98.2 F) 07/08/2021 9:27 PM EDT Respiratory Rate 18 07/08/2021 9:27 PM EDT Oxygen Saturation 96% 07/08/2021 9:27 PM EDT Inhaled Oxygen Concentration - - Weight 95.3 kg (210 lb 1.6 oz) 07/08/2021 6:07 P M EDT Height 155.8 cm (5' 1.34 ) 07/08/2021 2:46 PM ED T Body Mass Index 39.26 07/08/2021 2:46 PM EDT Plan of Treatment Not on file Care Teams Global Compensation Manager Relationship Specialty Start Date End Date PhillipsVic dailey DO [address] [place] [address] PCP - General 06/18/21 Vic Phillips DO [address] [place] [address] PCP - Clinical PCP 06/18/21
--- NOTE | 2025-09-24 02:51 | PC.NURSE ---
20 g IV placed in left AC
--- NOTE | 2025-09-24 03:08 | PC.NURSE ---
Pt sitting quietly on stretcher, IV fluids infusing. All needs met at this time.
[2025-09-24 03:32] LABS: IDNOW Serial# 6674DD1D
[2025-09-24 03:33] LABS: Strep A Nucleic Acid Negative (Negative)
[2025-09-24 03:57] VITALS: BP 105/65; PULSE 90; RESP 18; TEMP 36.5; O2SAT 100
[2025-09-24 04:24] VITALS: BP 105/65; PULSE 90; RESP 18; TEMP 36.5; O2SAT 100
== END 2025-09-24 04:24 | disposition home or self-care (01) ==
PROVIDERS: Physician Assistant; Emergency Provider Emergency Medicine; PCP Internal Medicine
DX: O26.893 Other specified pregnancy related conditions, third trimester (principal); Z3A.30 30 weeks gestation of pregnancy; J06.9 Acute upper respiratory infection, unspecified; J45.909 Unspecified asthma, uncomplicated; Z03.818 Encounter for observation for suspected exposure to other biological agents ruled out; R00.2 Palpitations; R05.9 Cough, unspecified; R07.9 Chest pain, unspecified; R00.0 Tachycardia, unspecified
CPT/HCPCS: 80053; 84484; 85025; 87637; 87651; 93005; 96360; 99284; 99285

== ENCOUNTER → 2025-09-24 00:38 | Outpatient (BNV) | payer OTHER, SELFPAY | PROVIDERS: Emergency Provider Emergency Medicine; PCP Internal Medicine; Visit Provider Internal Medicine Cardiovascular Disease | DX: R00.0 Tachycardia, unspecified (principal) | CPT/HCPCS: 93010 ==